=== PATIENT | male | born 1955 | race Caucasian/White ===

== ENCOUNTER 2020-10-14 10:26 | Day surgery (SDC) | payer BC ==
[2020-10-13 14:07] VITALS: BMI 28.8
[2020-10-14 16:25] VITALS: TEMP 98.4
[2020-10-14 16:35] VITALS: BP 124/74; PULSE 83
== END 2020-10-14 12:35 | disposition home or self-care (01) ==
LOC: FASU-ENDO 10:26
PROVIDERS: ATTEND Internal Medicine Gastroenterology
PROC: 0DBL8ZX Excision of Transverse Colon, Via Natural or Artificial Opening Endoscopic, Diagnostic (ICD-10-PCS; principal; 2020-10-14 11:16)
DX: Z12.11 Encounter for screening for malignant neoplasm of colon (principal); D12.3 Benign neoplasm of transverse colon; K57.30 Diverticulosis of large intestine without perforation or abscess without bleeding; K64.1 Second degree hemorrhoids